=== PATIENT | male | born 1975 | race African-American/Black ===

== ENCOUNTER 2019-02-11 20:18 | Emergency (ER) | payer MEDICARE ==
[~2019-02-11] VITALS: Ht 177.8 cm; Wt 77.3 kg
--- NOTE | 2019-02-11 21:09 | NUR ---
PT STATES HE CANNOT PEE AT THIS TIME, PT GIVEN WATER, OK PER . PT RESTING IN [facility] WITH CALL LIGHT WITHIN REACH
--- NOTE | 2019-02-11 21:24 | NUR ---
URINE SENT TO LAB. PT PROVIDED FOOD AND WATER
[2019-02-11 21:30] LABS: BASOPHILS # (AUTO) 0.03 x10^3/uL (0-0.1); BASOPHILS % (AUTO) 1 % (0-1); EOSINOPHILS # (AUTO) 0.18 x10^3/uL (0-0.4); EOSINOPHILS % (AUTO) 4 % (1-7); LYMPHOCYTES # (AUTO) 2.25 x10^3/uL (1-3.4); LYMPHOCYTES % (AUTO) 47 % (22-44); MD NO; MEAN CORPUSCULAR HEMOGLOBIN 29.4 pg (27.5-34.5); MEAN CORPUSCULAR HGB CONC 32.8 g/dL (33.2-36.2); MEAN CORPUSCULAR VOLUME 89.8 fL (81-97); MEAN PLATELET VOLUME 7.5 fL (7.4-10.4); MONOCYTES # (AUTO) 0.38 x10^3/uL (0.2-0.8); MONOCYTES % (AUTO) 8 % (2-9); NEUTROPHILS # (AUTO) 1.93 x10^3/uL (1.8-6.8); NEUTROPHILS % (AUTO) 41 % (42-75); PLATELET COUNT 245 x10^3/uL (130-400); RED BLOOD COUNT 5.13 x10^6/uL (4.38-5.82); RED CELL DISTRIBUTION WIDTH 14.6 % (9.4-14.8)
[2019-02-11 21:41] LABS: ALBUMIN 3.6 g/dL (3.4-5.0); ANION GAP 5 mmol/L (5-15); CALCIUM 9.3 mg/dL (8.5-10.1); CHLORIDE 111 mmol/L (98-107); CREATININE 1.22 mg/dL (0.7-1.3); SALICYLATE LEVEL 4.4 mg/dL (2.8-20.0)
[2019-02-11 21:44] LABS: AMPHETAMINE SCREEN, URINE Negative (Negative); BARBITURATE SCREEN, URINE Negative (Negative); BENZODIAZEPINE SCREEN, URINE Negative (Negative); CANNABINOID SCREEN, URINE Positive (Negative); COCAINE SCREEN, URINE Negative (Negative); METHADONE SCREEN, URINE Negative (Negative); OPIATE SCREEN, URINE Negative (Negative)
[2019-02-11] MEDS ORDERED: [UNRECOGNIZED DRUG - OTHER] (22:07)
--- NOTE | 2019-02-11 22:55 | NUR ---
PT SLEEPING IN [place]. EQUAL CHEST RISE AND FALL. NO NEEDS AT THIS TIME. AWAITING TELEPSYCH CONSULT
--- NOTE | 2019-02-11 23:43 | NUR ---
PT RESTING CALMLY, DENIES NEEDS, NADN, ROOM SECURED, SITTER AT DOORWAY FOR CONTINOUS MONITORING
--- NOTE | 2019-02-12 00:07 | NUR ---
TELEPSYCH CONSULT INITIATED.
--- NOTE | 2019-02-12 00:38 | NUR ---
RESTING QUIETLY, SITTER FOR PT SAFETY
--- NOTE | 2019-02-12 01:04 | NUR ---
Kalie aguiar in ED - 02/12/19 at 0106 by DARY PT RSTING CALMLY WITH EYES CLOSED, NADN, EQUAL CHEST RISE/FALL OBSERVED, SITTER AT DOORWAY FOR CONTINOUS MONITORING
--- NOTE | 2019-02-12 01:06 | NUR ---
PT RESTING CALMLY WITH EYES CLOSED, NADN, EQUAL CHEST RISE/FALL OBSERVED, AWAITING TELEPSYCH CONSULT
--- NOTE | 2019-02-12 01:46 | NUR ---
SOC ON TELEPHONE, MD UPDATED ON PT STATUS, MEDICATIONS, LABS AND VS
--- NOTE | 2019-02-12 01:47 | NUR ---
TELEPSYCH CONSULT IN PROCESS
--- NOTE | 2019-02-12 02:06 | NUR ---
PROVIDED PT WITH SNACK PER HIS REQUEST, DENIES FURTHER NEEDS AT THIS TIME.
[2019-02-12 02:09] VITALS: BP 105/72
[2019-02-12] MEDS ORDERED: HALOPERIDOL 5 MG TABLET PO STA (02:09)
[2019-02-12] MEDS ORDERED: HALOPERIDOL 5 MG TABLET ONE (02:13)
--- NOTE | 2019-02-12 02:18 | NUR ---
PT MEDICATED PER MAR
--- NOTE | 2019-02-12 02:30 | NUR ---
DISCUSSED D/C WITH PT, PT REFUSED TAXI V[employer]CHER, PT STATED "IT'S 2 O'CLOCK IN THE MORNING, YOU CAN'T SEND ME OUT". DISCUSSED POC AND D/C WITH PT, PT REFUSING TO GET UP, CONTINUES TO LAY IN BED WITH EYES CLOSED, YELLING OUT "IT'S TOO LATE, YOU CAN'T SEND ME OUT NOW". SECURITY CALLED FOR ASSISTANCE WITH ESCORTING PT OUT OF HOSPITAL FOR D/C.
--- NOTE | 2019-02-12 02:33 | NUR ---
SECURITY AT PT'S BEDSIDE
== END 2019-02-12 02:39 | disposition home or self-care (01) ==
LOC: ED 21:25
DX: F25.9 Schizoaffective disorder, unspecified (principal); F17.210 Nicotine dependence, cigarettes, uncomplicated
CPT/HCPCS: 36415; 80048; 80307; 82040; 85025; 99284